=== PATIENT | female | born 1965 | race Caucasian/White ===

== ENCOUNTER 2018-09-21 12:05 | Outpatient (REF) | payer MEDICAID, SELFPAY ==
--- NOTE | 2018-09-21 12:15 | PAPFT_PTH ---
PATIENT: Fannie Killian LOC: [facility] U#:[id number] AGE/SX: 53/F ROOM: RE09/21/[address]: Angelina Mac : 1965 BED: DIS: 09/21/2018 SPEC #: [id number] RECD: 09/22/18 13:07 STATUS: SONAL REDalia #: [id number] PETER: 09/21/18 12:[address]: Angelina Mac DEPT: FA Cytology RECD BY: Ene Haskins ENTERED: 09/22/18 13:07 SP TYPE: PAPFT OTHR DR: Yoko Mcclelland Tissues: 1 - CX/ENDOCX FOR PAP SMEARS Procedures: PAP THIN PREP/UVM Screening HPV DNA PROBE Comments: [id number]
== END 2018-09-21 12:25 ==
LOC: NCHCN 12:05
PROVIDERS: PCP Nurse Practitioner Family; Visit Provider Nurse Practitioner Family
DX: Z12.4 Encounter for screening for malignant neoplasm of cervix (principal); Z11.51 Encounter for screening for human papillomavirus (HPV); Z01.419 Encounter for gynecological examination (general) (routine) without abnormal findings
CPT/HCPCS: 88142; 87624

== ENCOUNTER 2018-10-19 12:51 | Outpatient (REF) | payer MEDICAID, SELFPAY | END 2018-10-19 13:11 | LOC: NCHCN 12:51 | PROVIDERS: PCP Nurse Practitioner Family; Visit Provider Nurse Practitioner Family | DX: R35.0 Frequency of micturition (principal) | CPT/HCPCS: 87077; 87086; 87186 ==

== ENCOUNTER 2018-11-06 15:08 | Outpatient (REF) | payer MEDICAID, SELFPAY ==
--- NOTE | 2018-11-06 14:30 | ENDO_PTH ---
PATIENT: Fannie Killian LOC: [facility] U#:[id number] AGE/SX: 53/F ROOM: RE11/06/[address]: Coleman Sprague MD : 1965 BED: DIS: 11/06/2018 SPEC #: [id number] RECD: 11/06/18 18:04 STATUS: SONAL BOATENG #: [id number] PETER: 11/06/18 14:[address]: Coleman Sprague DEPT: Surgical Specimen RECD BY: Ene Haskins ENTERED: 11/06/18 18:06 SP TYPE: Endo OTHR DR: Angelina Mac Tissues: 1 - ENDOCERVICAL BX/CURRETTE 2 - CERVICAL BIOPSY 3 - CERVICAL BIOPSY Procedures: GROSS AND MICRO LEVEL 4 Comments: [id number]
== END 2018-11-06 15:28 ==
LOC: LBN 15:08
PROVIDERS: PCP Nurse Practitioner Family; Visit Provider Obstetrics & Gynecology
DX: N87.9 Dysplasia of cervix uteri, unspecified (principal); N88.9 Noninflammatory disorder of cervix uteri, unspecified; R87.810 Cervical high risk human papillomavirus (HPV) DNA test positive
CPT/HCPCS: 88305

== ENCOUNTER 2018-11-27 10:13 | Emergency (ER) | payer MEDICAID, SELFPAY ==
[2018-11-27] VITALS (48 sets, daily range): BP systolic 83–182; BP diastolic 58–144; PULSE 97–128; RESP 4–29; TEMP 36.3; O2SAT 84–96
--- NOTE | 2018-11-27 10:32 | DI.RAD_ITS ---
SYMPTOMS/DIAGNOSIS: COUGH, SHORTNESS OF BREATH CHEST X-RAY, PA AND LATERAL: Comparison is 11/23/17. The heart size and pulmonary vasculature are within normal limits. The lungs are clear. Degenerative changes are seen in the spine. IMPRESSION: No acute pulmonary process.
--- NOTE | 2018-11-27 10:38 | ED.GENADUL_ITS ---
Discharge Plan Disposition Patient Disposition: HOME Condition: Stable Discharge Details Chief Complaint: RespSymp Clinical Impression: COPD exacerbation, Pneumonia, Pulmonary nodule seen on imaging study Primary Care Provider: Angelina Mac ED Provider: Danielle Antoine [place] Meds and New Rx's Prescriptions: New cefdinir 300 mg capsule 300 mg PO BID 10 Days Qty: 19 RF: 0 doxycycline hyclate 100 mg tablet 100 mg PO BID Qty: 19 RF: 0 Continued Oxygen Tank .ROUTE .MEDSUPPLY Qty: 1 RF: 0 bisacodyl [Dulcolax (bisacodyl)] 5 mg tablet,delayed release (DR/EC) 5 mg PO ONCE Qty: 4 RF: 0 polyethylene glycol 3350 17 gram/dose powder 255 g PO ONCE Qty: 255 RF: 0 oxycodone-acetaminophen [Percocet] 10-325 mg tablet 1 tab PO .COMPLEX RF: 0 Trelegy Ellipta 100-62.5-25 mcg blister with device 1 inh IH DAILY RF: 0 cyanocobalamin (vitamin B-12) [Vitamin B-12] 1,000 MCG tablet extended release 1,000 mcg PO DAILY RF: 0 gabapentin [Neurontin] 600 MG tablet 600 mg PO BID RF: 0 ipratropium-albuterol [DuoNeb] 3 ML solution for nebulization 3 ml Inhalation Q4H PRN RF: 0 ibuprofen 800 MG tablet 800 mg PO TID RF: 0 omeprazole 40 MG capsule,delayed release(DR/EC) 40 mg PO DAILY RF: 0 amitriptyline 10 MG tablet 30 mg PO HS RF: 0 ziprasidone HCl [Geodon] 40 MG capsule 40 mg PO BID RF: 0 epinephrine [EpiPen] 0.3 MG/0.3 ML auto-injector 0.3 mg IM PRN RF: 0 topiramate [Topamax] 100 MG tablet 100 mg PO BID RF: 0 Flovent HFA 12 GM HFA aerosol inhaler 12 gm Inhalation BID RF: 0 Spiriva with HandiHaler 18 MCG capsule, w/inhalation device 18 mcg Inhalation DAILY RF: 0 cholecalciferol (vitamin D3) [Vitamin D3] 400 unit capsule 1,000 unit PO BID RF: 0 paroxetine HCl [Paxil] 20 mg tablet 20 mg PO BID RF: 0 albuterol sulfate 2.5 MG/3 ML solution for nebulization 2.5 mg UPD Q2H PRN PRNRF: 0 Discontinued levofloxacin 750 MG tablet 750 mg PO DAILY Qty: 7 RF: 0 Discharge Instructions Instructions: COPD (Chronic Obstructive Pulmonary Disease) (ED), Pneumonia (ED) Additional Instructions: Please return immediately to the emergency department if you develop any new or worsening symptoms or if you become otherwise concerned. It is extremely important that you attend your scheduled appointment with your primary care doctor on 11/29 at 11 AM as we discussed. Incidental pulmonary nodules were found on your CT scan, you will need to have repeat imaging in 6-12 months to follow these. Referrals: Angelina Mac [Primary Care Provider] - Discharge Data Discharge Date/Time-TO BE ENTERED AT DEPARTURE: 11/27/18 16:38 Medical Decision Making Fannie Killian is a 53-year-old woman with a history of multiple sclerosis, COPD, seizures presenting to the emergency department with 5 days of cough, shortness of breath, fevers despite being on prednisone and Levaquin over that time.. On exam patient is acutely nontoxic appearing, does not appear to be in respiratory distress though it has decreased breath sounds throughout and diffuse expiratory wheeze. On 2 L by nasal cannula, patient O2 sat is 93%, and she is tachycardic at 106. Concern for pneumonia versus influenza versus COPD exacerbation versus metabolic/light disturbance versus dehydration, other. Doubt ACS, PE. Exam/history is not consistent with sepsis, acute aortic pathology. Plan for EKG, chest x-ray, screening labs, IV fluid hydration, DuoNeb, telemetry. Will monitor and reassess. Patient reports feeling somewhat improved after DuoNeb. She does note that she received a DuoNeb also in her primary care care doctor's office today. Wheezes improved bilaterally, but still present. Chest x-ray negative. Plan for repeat DuoNeb, will continue IV fluid hydration. Patient reporting that she feels very well and feels ready to leave at this time, but is agreeable to DuoNeb and continuation of fluids. We will continue to monitor. Patient reports that she feels at baseline after second DuoNeb (3 total DuoNeb's today). On auscultation, no further wheeze, good breath sounds bilaterally. Patient got up to use the bathroom and was disconnected from oxygen, her O2 sats dropped into the low 80s and she became tachycardic in the 140s during short course the bathroom. She was placed back on oxygen, heart rate dropped to 110s, O2 sat rapidly improved to 90% on 2 L nasal cannula. Patient reports that she does not have travel oxygen at home, and has no oxygen whenever she leaves her house. This was the case when she went to her PCPs office this morning. Care management involved for travel O2. Patient continues to request discharge, reports that she feels well and at baseline. Concern for persistent tachycardia, significantly improved from arrival. Suspect dehydration. Awaiting second troponin, plan for second liter IV fluid. Pt with tachycardia unchanged, 110s. Pt patient reporting no further respiratory symptoms. Satting 93-94% on 2 L nasal cannula. Unclear etiology of tachycardia, likely secondary to albuterol administration, however at this time plan for CT for rule out PE. CT negative for PE, patient does have small lower lobe infiltrate and nodules that need 6-12-month follow-up per radiology. HR 100-110. Unclear etiology of tachycardia at this time, however exam/history is not consistent with sepsis, myocarditis, other acute emergent life-threatening process. Patient reports that she feels well in her usual state of health, and would like to go home at this time. As patient has been on Levaquin for 5 days at this time, plan to switch to Augmentin and azithromycin for pneumonia. Plan for her to continue her steroid course. Respiratory therapy provided patient with travel oxygen to use whenever she is outside the home. I had a lengthy discussion with the patient regarding return to emergency department precautions and importance of outpatient follow-up with her PCP tomorrow as planned. Patient verbalized understanding of the plan and was amenable. Medical Records Medical records reviewed: Yes I reviewed the patient's medical records. Imaging Data Radiologic Study: Attestation: I personally reviewed and interpreted this imaging study as follows: Radiologist's impression: Chest x-ray negative per radiology CT chest per radiology: Small infiltrate, pulmonary nodules that needs 6-12-month follow-up, no PE, no other acute findings Lab Data Lab results reviewed: Yes I reviewed the patient's lab results. 11/27/18 10:55 Nasopharynx Influenza Types A,B Antigen - Final Laboratory Tests Range/Units 11/27/18 11/27/18 11/27/18 10:30 10:30 10:30 WBC (4.4-10.8) k/cumm 8.03 RBC (4.00-5.20) m/cumm 4.82 Hgb (12.0-15.5) g/dL 14.8 Hct (36.0-46.0) % 45.8 MCV (80-95) fL 95.0 MCH (27.0-33.0) pg 30.7 MCHC (32.0-36.0) g/dL 32.3 RDW (11.7-14.6) % 15.7 H Plt Count (130-400) x1000/uL 228 MPV (8.0-11.0) fL 11.4 H Immature Gran % 0.0 Neutrophils % 64.0 Band Neutrophils % % 4.0 Lymphocytes % 19.0 Atypical Lymphs % 3 Monocytes % 10.0 Eosinophils % 0.0 Basophils % 0.0 Absolute Neutrophils (1.2-6.7) k/cumm 5.46 Absolute Lymphocytes (1.2-3.4) k/cumm 1.77 Absolute Monocytes (0.11-0.7) k/cumm 0.80 H Absolute Eosinophils (0.0-0.7) k/cumm 0.00 Absolute Basophils (0.0-0.2) k/cumm 0.00 Differential Comment Manual differential RBC Morphology See below Anisocytosis 1+ D-Dimer (<500) ng/mlFEU 279 Sodium (136-145) mmol/L 141 Potassium (3.5-5.1) mmol/L 3.7 Chloride (98-107) mmol/L 100 Carbon Dioxide (21.0-32.0) mmol/L 35.2 H Anion Gap (3-11) mmol/L 5.8 BUN (7-18) mg/dL 20 H Creatinine (0.55-1.02) mg/dL 0.70 Estimated GFR/1.73 m2 (mL/min/1.73m2) >= 60.00 Glucose (70-100) mg/dL 123 H Calcium (8.5-10.1) mg/dL 9.1 Total Bilirubin (0.2-1.0) mg/dL 0.3 AST (15-37) U/L 33 ALT (12-78) U/L 40 Alkaline Phosphatase (46-116) U/L 85 Troponin I (0.00-0.06) ng/mL < 0.02 Total Protein (6.4-8.2) g/dL 7.7 Albumin (3.4-5.0) g/dL 3.4 Range/Units 11/27/ 14:03 WBC (4.4-10.8) k/cumm RBC (4.00-5.20) m/cumm Hgb (12.0-15.5) g/dL Hct (36.0-46.0) % MCV (80-95) fL MCH (27.0-33.0) pg MCHC (32.0-36.0) g/dL RDW (11.7-14.6) % Plt Count (130-400) x1000/uL MPV (8.0-11.0) fL Immature Gran % Neutrophils % Band Neutrophils % % Lymphocytes % Atypical Lymphs % Monocytes % Eosinophils % Basophils % Absolute Neutrophils (1.2-6.7) k/cumm Absolute Lymphocytes (1.2-3.4) k/cumm Absolute Monocytes (0.11-0.7) k/cumm Absolute Eosinophils (0.0-0.7) k/cumm Absolute Basophils (0.0-0.2) k/cumm Differential Comment RBC Morphology Anisocytosis D-Dimer (<500) ng/mlFEU Sodium (136-145) mmol/L Potassium (3.5-5.1) mmol/L Chloride (98-107) mmol/L Carbon Dioxide (21.0-32.0) mmol/L Anion Gap (3-11) mmol/L BUN (7-18) mg/dL Creatinine (0.55-1.02) mg/dL Estimated GFR/1.73 m2 (mL/min/1.73m2) Glucose (70-100) mg/dL Calcium (8.5-10.1) mg/dL Total Bilirubin (0.2-1.0) mg/dL AST (15-37) U/L ALT (12-78) U/L Alkaline Phosphatase (46-116) U/L Troponin I (0.00-0.06) ng/mL < 0.02 Total Protein (6.4-8.2) g/dL Albumin (3.4-5.0) g/dL ECG Data Attestation: I personally reviewed and interpreted this ECG (s) as follows: Interpretation: EKG shows sinus tach at 106, normal axis, inferior Q waves, no STEMI, nondiagnostic EKG HPI General Mode of arrival: ambulatory . Date/Time Provider Initiated Documentation: 11/27/18 10:17 . Limitations to Documentation: no limitations . Information obtained by: patient, family, RN notes reviewed and old records reviewed . HPI Narrative: Fannie Killian is a 53-year-old woman with history of COPD, seizures, multiple sclerosis presenting to the emergency department with shortness of breath and cough. Patient was seen 5 days ago by her PCP for increased shortness of breath and cough. She was started on prednisone, Levaquin, and had a flu swab that was negative. Patient had follow-up appointment with her PCP this morning, and was sent to the emergency department for hypoxia 79% on room air and tachycardia in the 130s. Patient is on 2 L nasal cannula oxygen 24 hours a day. Patient reporting increased cough that is helped somewhat by her home COPD meds, increased shortness of breath with exertion from baseline. She reports that she does not feel short of breath at rest. She denies any pain. She reports that she has had intermittent fevers, and had a measured temp of 101 at her doctor's visit 5 days ago. No vomiting, diarrhea, rash, weakness. Patient reports decreased p.o. intake over the past few days secondary to this illness. No recent travel. Related Data Home Medications Medication Instructions Recorded Confirmed Flovent HFA 12 gm INHALATION BID 12/19/12 11/27/18 Spiriva with HandiHaler 18 mcg INHALATION DAILY 12/19/12 11/27/18 amitriptyline 30 mg PO HS 12/19/12 11/27/18 cyanocobalamin (vitamin B-12) 1,000 mcg PO DAILY 12/19/12 11/27/18 [Vitamin B-12] epinephrine [EpiPen] 0.3 mg IM PRN 12/19/12 11/27/18 gabapentin [Neurontin] 600 mg PO BID 12/19/12 11/27/18 ibuprofen 800 mg PO TID 12/19/12 11/27/18 ipratropium-albuterol [DuoNeb] 3 ml INHALATION Q4H PRN 12/19/12 11/27/18 omeprazole 40 mg PO DAILY 12/19/12 11/27/18 topiramate [Topamax] 100 mg PO BID 12/19/12 11/27/18 ziprasidone HCl [Geodon] 40 mg PO BID 12/19/12 11/27/18 albuterol sulfate 2.5 mg UPD Q2H PRN PRN vial 07/14/16 11/27/18 cholecalciferol (vitamin D3) 400 1,000 unit PO BID cap 10/30/18 11/27/18 unit capsule fluticasone 100 mcg-umeclid 62.5 1 inh IH DAILY 10/30/18 11/06/18 mcg-vilant 25 mcg powd for inhalation paroxetine 20 mg tablet 20 mg PO BID tab 10/30/18 11/27/18 Oxygen #1 each 11/03/18 11/06/18 bisacodyl 5 mg tablet,delayed 5 mg PO ONCE #4 tab 11/03/18 11/27/18 release oxycodone-acetaminophen 10 mg-325 1 tab PO .COMPLEX 11/03/18 11/27/18 mg tablet polyethylene glycol 3350 17 255 g PO ONCE #255 gm 11/03/18 11/27/18 gram/dose oral powder cefdinir 300 mg PO BID 10 Days #19 cap 11/27/18 doxycycline hyclate 100 mg PO BID #19 tab 11/27/18 Previous Rx's Medication Instructions Recorded albuterol sulfate 2.5 mg UPD Q2H PRN PRN vial 07/14/16 bisacodyl 5 mg tablet,delayed 5 mg PO ONCE #4 tab 11/03/18 release polyethylene glycol 3350 17 255 g PO ONCE #255 gm 11/03/18 gram/dose oral powder cefdinir 300 mg PO BID 10 Days #19 cap 11/27/18 doxycycline hyclate 100 mg PO BID #19 tab 11/27/18 Allergies Allergy/AdvReac Type Severity Reaction Status Date / Time varenicline [From Chantix] Allergy Unknown Verified 11/27/18 10:31 BEE STINGS Allergy Severe Uncoded 11/27/18 10:31 Review of Systems Review of Systems Constitutional: Reports fevers Eyes: denies eye pain ENT: denies facial pain, dental pain, sore throat Cardiovascular: denies chest pain, edema Respiratory: Reports SOB, cough GI: denies abdominal pain, vomiting, diarrhea : denies flank pain MSK: denies back pain, neck pain, arthralgias, myalgias Skin: denies rash Neuro: denies headaches, numbness, weakness PFSH Medical History Cigarette smoker (Chronic) History of seizures (Chronic) Chronic pain (Chronic) Multiple sclerosis (Chronic) Stage 3 severe COPD by GOLD classification (Chronic) Mood disorder (Acute) MRSA (methicillin resistant staph aureus) culture positive (Chronic) GERD (gastroesophageal reflux disease) (Chronic) Chronic cough (Chronic) Prediabetes (Chronic) Chest pain (Acute) Capsulitis of shoulder (Acute) Cellulitis and abscess of unspecified site (Acute) Cough syncope (Acute) Hypotension (Acute) Positive test for human papillomavirus (HPV) (Acute) Skin lesion (Acute) Depression (Chronic) Lumbar disc herniation (Chronic) Migraine (Chronic) Optic neuropathy (Chronic) PTSD (post-traumatic stress disorder) (Chronic) Papilloma of breast (Chronic) Urinary, incontinence, stress female (Chronic) Social History Smoking and Tabacco status: Current every day Exam Narrative Exam Narrative: Constitutional: Chronically ill but acutely [id number], pleasant, conversing normally HENT: head atraumatic/normocephalic/normal inspection, mucous membranes moist Eyes: conjunctiva normal, sclera normal, pupils 3mm b/l Neck: no stridor, normal ROM, trachea midline Chest: normal inspection Resp: Respiratory rate 20, decreased breath sounds with expiratory wheeze bilaterally Cardio: Tachycardic rate, normal rhythm, no murmur appreciated GI: abdomen soft, non-tender, non-distended Back: normal inspection, no rash Skin: warm, dry, normal color, no rash Neuro: alert, not altered, grossly non-focal, normal tone Ext: no edema, no posterior calf tenderness to palpation Psych: normal mood, normal affect, normal behavior
[2018-11-27] MEDS: Normal Saline 500 ML IV (10:40)
[2018-11-27 10:44] LABS: Abs Immature Grans 0.02 k/cumm (0.0-0.09); HCT 45.8 % (36.0-46.0); HGB 14.8 g/dL (12.0-15.5); Mean Corp. HGB Concentration 32.3 g/dL (32.0-36.0); Mean Corpuscular Hemoglobin 30.7 pg (27.0-33.0); Mean Platelet Volume 11.4 fL (8.0-11.0); Platelet Count 228 x1000/uL (130-400); RBC 4.82 m/cumm (4.00-5.20); RBC Distribution Width 15.7 % (11.7-14.6); White Blood Cell Count 8.03 k/cumm (4.4-10.8)
[2018-11-27] MEDS: Albuterol/Ipratropium 3 ML UPD VIAL UPD ×2 (10:54→12:45)
[2018-11-27 11:06] LABS: ALT 40 U/L (12-78); AST 33 U/L (15-37); Albumin 3.4 g/dL (3.4-5.0); Alkaline Phosphatase 85 U/L (46-116); Anion Gap 5.8 mmol/L (3-11); BUN 20 mg/dL (7-18); Bilirubin, Total 0.3 mg/dL (0.2-1.0); CO2 35.2 mmol/L (21.0-32.0); Calcium 9.1 mg/dL (8.5-10.1); Chloride 100 mmol/L (98-107); Glucose 123 mg/dL (70-100); Potassium 3.7 mmol/L (3.5-5.1); Sodium 141 mmol/L (136-145); Total Protein 7.7 g/dL (6.4-8.2)
[2018-11-27 11:08] LABS: Troponin I < 0.02 ng/mL (0.00-0.06)
[2018-11-27 11:14] LABS: D-Dimer 279 ng/mlFEU (<500)
[2018-11-27 11:32] LABS: Absolute Lymphocyte Count 1.77 k/cumm (1.2-3.4); Absolute Neutrophil Count 5.46 k/cumm (1.2-6.7); Anisocytosis 1+; Atypical Lymphocytes % 3; Diff Comment Manual Differential
--- NOTE | 2018-11-27 14:34 | PDOC.ERCMPRO ---
Care Management Progress Note 11/27-Dr. Bernard Antoine requested assistance with portable oxygen as well as a PCP f/u appt for Tuesday afternoon/Tuesday morning. Fannie receives oxygen from [employer]. Called [facility] and spoke with Coleman. Coleman will bring a [employer]able [employer] tank to the emergency department for Fannie to take home. This CM called [employer] and spoke with Luis Miguel. Luis Miguel stated today was a holiday so he could bring portable oxygen tomorrow to Fannie's house. Called [facility] and spoke with Porsche. Porsche scheduled f/u appt for Tuesday, 12/27 at 11 am with Angelina Mac at [facility]. Dr. Aura Antoine is aware of the above. Patient given an appt card.
--- NOTE | 2018-11-27 14:38 | CMPROGNOTE_ITS ---
Care Management Progress Note 11/27-Dr. Bernard Antoine requested assistance with portable oxygen as well as a PCP f/u appt for Tuesday afternoon/Tuesday morning. Fannie receives oxygen from [facility]. Called [facility] and spoke with Coleman. Coleman will bring a Portable [email or web address] [facility] tank to the emergency department for Fannie to take home. This CM called [email or web address] [facility] and spoke with Luis Miguel. Luis Miguel stated today was a holiday so he could bring portable oxygen tomorrow to Fannie's house. Called [facility] and spoke with Porsche. Porsche scheduled f/u appt for Tuesday, 12/27 at 11 am with Angelina Mac at [facility]. Dr. Aura Antoine is aware of the above. Patient given an appt card.
[2018-11-27] MEDS: Normal Saline 1,000 ML 1000 ML IV (14:45)
[2018-11-27 14:46] LABS: Troponin I < 0.02 ng/mL (0.00-0.06)
--- NOTE | 2018-11-27 15:08 | DI.CT_ITS ---
SYMPTOM/DIAGNOSIS: TACHYCARDIA, SOB PE CHEST CT: CT angiography was performed with multi slice acquisition and multi planar and 3D reconstruction. PE CT was performed according to protocol. There is no evidence of a pulmonary embolus. The thoracic aorta is of normal caliber. No aneurysmal dilatation is seen. Heart size is within normal limits. No significant pericardial effusion is present. No thoracic adenopathy is identified. There is no pleural effusion or pneumothorax. There are a few peripheral pulmonary nodules seen in the right lung. There are emphysematous changes seen in the lung apices. There does appear to be a faint infiltrate in the right lower lobe. Tracheobronchial tree is unremarkable. The bones are intact. Degenerative changes are seen in the spine. IMPRESSION: 1. No evidence of a pulmonary embolus, thoracic aortic dissection or aneurysm. 2. Question of a faint infiltrate in the right lower lobe. This may represent atelectasis or pneumonia. 3. A few non calcified peripheral nodules in the right lung. These are nonspecific. The findings were discussed with the ER on the date of the examination.
[2018-11-27] MEDS: Omnipaque 350 MG/ML 100 ML BTL IJ (15:51)
[2018-11-27] MEDS: Doxycycline Hyclate 100 MG CAP PO (16:10)
[2018-11-27] MEDS: Cefdinir 300 MG CAP PO (16:20)
== END 2018-11-27 16:38 | disposition home or self-care (01) ==
PROVIDERS: Emergency Provider Student in an Organized Health Care Education/Training Program; PCP Nurse Practitioner Family
DX: J44.0 Chronic obstructive pulmonary disease with (acute) lower respiratory infection (principal); J18.9 Pneumonia, unspecified organism; R91.1 Solitary pulmonary nodule; R00.0 Tachycardia, unspecified; F17.210 Nicotine dependence, cigarettes, uncomplicated
CPT/HCPCS: 36415; 71275; 80053; 87449; 93005; 94640; 96360; 96361; 99285; 71046; 84484; 85025; 85379; 93010; J3490; J7620

== ENCOUNTER 2019-02-01 16:25 | Outpatient (REF) | payer MEDICAID, SELFPAY | END 2019-02-01 16:45 | LOC: NCHCN 16:25 | PROVIDERS: PCP Nurse Practitioner Family; Visit Provider Nurse Practitioner Family | DX: R30.0 Dysuria (principal) | CPT/HCPCS: 87086 ==

== ENCOUNTER 2019-03-29 10:31 | Outpatient (REF) | payer MEDICAID, SELFPAY ==
[2019-04-04 00:54] LABS: Codeine Negative ng/mL (Cutoff: 25); Dihydrocodeine Negative ng/mL (Cutoff: 25); Hydrocodone Negative ng/mL (Cutoff: 25); Hydromorphone Negative ng/mL (Cutoff: 25); Morphine Negative ng/mL (Cutoff: 25); Naloxone Negative ng/mL (Cutoff: 25); Norhydrocodone Negative ng/mL (Cutoff: 25); Noroxycodone Negative ng/mL (Cutoff: 25); Noroxymorphone Negative ng/mL (Cutoff: 25); Opiates Interpretation Negative.
== END 2019-03-29 10:51 ==
LOC: NCHCN 10:31
PROVIDERS: PCP Nurse Practitioner Family; Visit Provider Nurse Practitioner Family
DX: F11.20 Opioid dependence, uncomplicated (principal); G89.29 Other chronic pain
CPT/HCPCS: 80361

== ENCOUNTER 2019-04-25 11:05 | Outpatient (REF) | payer MEDICAID, SELFPAY ==
[2019-04-25 20:00] LABS: Abs Immature Grans 0.01 k/cumm (0.0-0.09); Absolute Basophil Count 0.03 k/cumm (0.0-0.2); Absolute Eosinophil Count 0.09 k/cumm (0.0-0.7); Absolute Lymphocyte Count 2.39 k/cumm (1.2-3.4); Absolute Monocyte Count 0.47 k/cumm (0.11-0.7); Absolute Neutrophil Count 4.35 k/cumm (1.2-6.7); Basophils % 0.4; Eosinophils % 1.2; HCT 47.2 % (36.0-46.0); HGB 14.3 g/dL (12.0-15.5); Immature Grans % 0.1; Lymphocytes % 32.6; Mean Corp. HGB Concentration 30.3 g/dL (32.0-36.0); Mean Corpuscular Hemoglobin 29.7 pg (27.0-33.0); Mean Corpuscular Volume 98.1 fL (80-95); Mean Platelet Volume 12.2 fL (8.0-11.0); Monocytes % 6.4; Neutrophils % 59.3; Platelet Count 247 x1000/uL (130-400); RBC 4.81 m/cumm (4.00-5.20); RBC Distribution Width 14.9 % (11.7-14.6); White Blood Cell Count 7.34 k/cumm (4.4-10.8)
[2019-04-25 20:15] LABS: Anion Gap 8.5 mmol/L (3-11); BUN 12 mg/dL (7-18); CO2 28.5 mmol/L (21.0-32.0); CREATININE 0.68 mg/dL (0.55-1.02); Calcium 8.9 mg/dL (8.5-10.1); Chloride 105 mmol/L (98-107); Glucose 124 mg/dL (70-100); Potassium 4.1 mmol/L (3.5-5.1); Sodium 142 mmol/L (136-145)
[2019-04-27 10:34] LABS: Hepatitis C Ab w Rflx HCV PCR Negative (NEGAT)
== END 2019-04-25 11:25 ==
LOC: NCHCN 11:05
PROVIDERS: PCP Nurse Practitioner Family; Visit Provider Nurse Practitioner Family
DX: G47.00 Insomnia, unspecified (principal); F32.9 Major depressive disorder, single episode, unspecified; J44.9 Chronic obstructive pulmonary disease, unspecified; M51.16 Intervertebral disc disorders with radiculopathy, lumbar region; G89.29 Other chronic pain; Z13.9 Encounter for screening, unspecified
CPT/HCPCS: 80048; 86803; 85025

== ENCOUNTER 2019-06-18 08:25 | Outpatient (REF) | payer MEDICAID, SELFPAY ==
[2019-06-18 21:21] LABS: Calculated LDL 126 mg/dL; Cholesterol 244 mg/dL (50-200); Glucose 93 mg/dL (70-100); HDL Cholesterol 45 mg/dL (40-60); Triglyceride 368 mg/dL (30-150)
== END 2019-06-18 08:45 ==
LOC: NCHCN 08:25
PROVIDERS: PCP Nurse Practitioner Family; Visit Provider Nurse Practitioner Family
DX: R73.03 Prediabetes (principal)
CPT/HCPCS: 80061; 82947

== ENCOUNTER 2019-07-04 01:07 | Outpatient (CLI) | payer MEDICAID, SELFPAY ==
--- NOTE | 2019-07-04 11:52 | DI.CT_ITS ---
EXAM: CT CHEST WO CLINICAL HISTORY: F/U LUNG NODULE R93.89. TECHNIQUE: CT was performed according to the usual protocol. COMPARISON: CHEST 2 VIEWS PA,LAT from 11/23/2017 CT chest PE CTA from 11/27/2018 FINDINGS: Compared with a previous examination, there has been no change in the status of the small pleural-bas ed nodules in the right lung. No new nodules are evident. The lungs are well expanded. There is no pleural effusion. The heart is not enlarged. There is no pericardial effusion. There is no evidence f or mediastinal adenopathy. IMPRESSION: No interval change is demonstrated.
== END 2019-07-04 01:27 ==
PROVIDERS: PCP Nurse Practitioner Family; Visit Provider Internal Medicine
DX: R91.8 Other nonspecific abnormal finding of lung field (principal)
CPT/HCPCS: 71250

== ENCOUNTER 2019-11-29 09:32 | Emergency (ER) | payer MEDICAID, SELFPAY ==
[2019-11-29] VITALS (20 sets, daily range): BP systolic 105–137; BP diastolic 61–92; PULSE 85–116; RESP 13–31; TEMP 36.6–36.7; O2SAT 92–100
--- NOTE | 2019-11-29 09:30 | DI.RAD_ITS ---
EXAM: XR PORTABLE CHEST AP CLINICAL HISTORY: cough. TECHNIQUE: 2D digital imaging was performed. COMPARISON: CT CHEST WO from 07/04/2019 FINDINGS: LUNGS: Clear. No pleural abnormality seen. HEART: Normal. MEDIASTINUM: Normal. OTHER FINDINGS: None. IMPRESSION: No acute pulmonary findings. DATA REPOSITORY: RADIATION DOSE DELIVERED:
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
[2019-11-29 09:53] LABS: Abs Immature Grans 0.03 k/cumm (0.0-0.09); Absolute Basophil Count 0.02 k/cumm (0.0-0.2); Absolute Lymphocyte Count 1.72 k/cumm (1.2-3.4); Absolute Monocyte Count 0.46 k/cumm (0.11-0.7); Absolute Neutrophil Count 6.48 k/cumm (1.2-6.7); Basophils % 0.2; Eosinophils % 1.1; HCT 45.5 % (36.0-46.0); Immature Grans % 0.3 %; Lymphocytes % 19.5; Mean Corp. HGB Concentration 30.8 g/dL (32.0-36.0); Mean Corpuscular Hemoglobin 30.3 pg (27.0-33.0); Mean Corpuscular Volume 98.5 fL (80-95); Mean Platelet Volume 11.6 fL (8.0-11.0); Monocytes % 5.2; Neutrophils % 73.7; Platelet Count 265 x1000/uL (130-400); RBC 4.62 m/cumm (4.00-5.20); RBC Distribution Width 14.8 % (11.7-14.6); White Blood Cell Count 8.81 k/cumm (4.4-10.8)
[2019-11-29 09:55] LABS: BE (Venous) 5.8 mmol/L (-3-3); HCO3 (Venous) 30 mmol/L (22-28); O2 Sat (Venous) 96 % (70-80); TCO2 (Venous) 27 mmol/L (22-29); pCO2 (Venous) 48 mm/Hg (34-47); pH (Venous) 7.41 (7.35-7.45); pO2 (Venous) 76 mm/Hg (28-44)
[2019-11-29] MEDS: Albuterol/Ipratropium 3 ML UPD VIAL UPD (09:57)
[2019-11-29] MEDS: methylPREDNISolone SUCC 125 MG VIAL IVP (09:58)
[2019-11-29 10:19] LABS: Bilirubin Negative (Negative); Blood Negative (Negative); Clarity Sl Cloudy (Clear); Glucose Negative (Negative); Ketones Negative (Negative); Leukocyte Esterase Negative (Negative); Nitrite Negative (Negative); Specific Gravity 1.015 (1.005-1.025); Urobilinogen 0.2 EU/dL (Up TO 0.2); pH 8.5 (5-8)
[2019-11-29 10:55] LABS: ALT 28 U/L (14-59); AST 52 U/L (15-37); Albumin 3.4 g/dL (3.4-5.0); Alkaline Phosphatase 87 U/L (46-116); Anion Gap 9.7 mmol/L (3-11); BUN 14 mg/dL (7-18); Bilirubin, Total 0.4 mg/dL (0.2-1.0); CO2 30.3 mmol/L (21.0-32.0); CREATININE 0.52 mg/dL (0.55-1.02); Chloride 104 mmol/L (98-107); Glucose 134 mg/dL (74-106); Potassium 3.8 mmol/L (3.5-5.1); Sodium 144 mmol/L (136-145); Total Protein 6.7 g/dL (6.4-8.2); Troponin I < 0.05 ng/Ml (<0.06)
--- NOTE | 2019-11-29 11:31 | NUR.NOTE ---
ref to [facility]. Nursing Note:
== END 2019-11-29 11:23 | disposition home or self-care (01) ==
PROVIDERS: Emergency Provider Emergency Medicine; PCP Nurse Practitioner Family
DX: J44.1 Chronic obstructive pulmonary disease with (acute) exacerbation (principal)
CPT/HCPCS: 80053; 82805; 87449; 93005; 94640; 96374; 99284; 71045; 81003; 83735; 84484; 85025; 93010; J2930; J7620

== ENCOUNTER 2020-03-25 15:02 | Outpatient (REF) | payer MEDICAID, SELFPAY ==
[2020-03-25 20:12] LABS: Hemoglobin A1C 6.3 % (3.8-5.6)
== END 2020-03-25 15:22 ==
LOC: NCHCN 15:02
PROVIDERS: PCP Nurse Practitioner Family; Visit Provider Nurse Practitioner Family
DX: R73.03 Prediabetes (principal)
CPT/HCPCS: 83036

== ENCOUNTER 2020-04-25 13:16 | Emergency (ER) | payer MEDICAID, SELFPAY ==
[2020-04-25 13:14] VITALS: BP 143/74; PULSE 72; RESP 18; TEMP 36.3; O2SAT 92
[2020-04-25] MEDS: Normal Saline 1,000 ML 1000 ML IV (13:53)
[2020-04-25 14:05] LABS: Abs Immature Grans 0.02 k/cumm (0.0-0.09); Absolute Basophil Count 0.03 k/cumm (0.0-0.2); Absolute Eosinophil Count 0.03 k/cumm (0.0-0.7); Absolute Lymphocyte Count 2.16 k/cumm (1.2-3.4); Absolute Monocyte Count 0.68 k/cumm (0.11-0.7); Absolute Neutrophil Count 6.98 k/cumm (1.2-6.7); Basophils % 0.3; Eosinophils % 0.3; HCT 47.7 % (36.0-46.0); HGB 14.5 g/dL (12.0-15.5); Immature Grans % 0.2 %; Lymphocytes % 21.8; Mean Corp. HGB Concentration 30.4 g/dL (32.0-36.0); Mean Corpuscular Hemoglobin 29.3 pg (27.0-33.0); Mean Corpuscular Volume 96.4 fL (80-95); Mean Platelet Volume 12.5 fL (8.0-11.0); Monocytes % 6.9; Neutrophils % 70.5; Platelet Count 269 x1000/uL (130-400); RBC 4.95 m/cumm (4.00-5.20); RBC Distribution Width 14.1 % (11.7-14.6)
[2020-04-25 14:12] LABS: Bilirubin Negative (Negative); Blood Trace-intact (Negative); Clarity Clear (Clear); Glucose Negative (Negative); Ketones Negative (Negative); Leukocyte Esterase Negative (Negative); Nitrite Negative (Negative); Urobilinogen 0.2 EU/dL (Up TO 0.2); pH 7.5 (5-8)
[2020-04-25 14:27] LABS: ALT 19 U/L (14-59); AST 16 U/L (15-37); Albumin 3.6 g/dL (3.4-5.0); Alkaline Phosphatase 88 U/L (46-116); Anion Gap 8.8 mmol/L (3-11); BUN 17 mg/dL (7-18); Bilirubin, Total 0.4 mg/dL (0.2-1.0); CO2 30.2 mmol/L (21.0-32.0); CREATININE 0.58 mg/dL (0.55-1.02); Calcium 9.2 mg/dL (8.5-10.1); Chloride 100 mmol/L (98-107); Glucose 123 mg/dL (74-106); Lipase 84 U/L (73-393); Potassium 3.5 mmol/L (3.5-5.1); Sodium 139 mmol/L (136-145); Total Protein 7.7 g/dL (6.4-8.2)
[2020-04-25 14:30] LABS: Epithelial Cells Few HPF (Negative); RBC 0-2 HPF (0-2); WBC 0-2 HPF (0-5)
--- NOTE | 2020-04-25 14:30 | DI.CT_ITS ---
EXAM: CT ABDOMEN PELVIS W INDICATION: Left lower quadrant pain. COMPARISON: CT CT chest PE CTA from 11/27/2018 TECHNIQUE: FINDINGS: CT examination of the abdomen and pelvis was performed with a bolus infusion of 100 cc of Omnipaque 3 50. Images obtained through the lung bases are unremarkable. Liver, spleen and pancreas appear normal . Gallbladder and bile ducts are CT normal. Adrenals are unremarkable in appearance. The kidneys are normal in size and shape with no hydronephr osis. There are multiple small nonobstructing left renal calculi.. Urinary bladder essentially empt y. Abdominal aorta is of normal diameter and no major vascular abnormality is seen. No abdominal wall hernia. No abdominal or pelvic adenopathy. [employer] structures appear intact. Appendix is normal. No evidence of diverticulitis or bowel obstruction. IMPRESSION: Nonobstructing left renal calculi. Examination is otherwise unremarkable. RADIATION DOSE DELIVERED: Total DLP Total DLP
[2020-04-25 14:31] LABS: Bacteria Few HPF (Negative); C & S Indicated? No; Casts Negative LPF (Negative); Crystals Moderate Amorphous HPF (Negative); Mucus Trace (Negative)
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
[2020-04-25] MEDS: Omnipaque 350 MG/ML 100 ML BTL IJ (16:03)
--- NOTE | 2020-04-25 16:57 | NUR.NOTE ---
Nursing Note: referal sent to urology 04/25/20
[2020-04-25 17:18] VITALS: BP 132/81; PULSE 71; RESP 20; O2SAT 94
== END 2020-04-25 17:10 | disposition home or self-care (01) ==
PROVIDERS: Physician Assistant; Emergency Provider Physician Assistant; PCP Nurse Practitioner Family
DX: N20.0 Calculus of kidney (principal); R11.0 Nausea; J44.9 Chronic obstructive pulmonary disease, unspecified; F17.210 Nicotine dependence, cigarettes, uncomplicated; G35 Multiple sclerosis
CPT/HCPCS: 36415; 80053; 83690; 96360; 96361; 99285; 74177; 81003; 81015; 85025; 99284; J3490

== ENCOUNTER 2020-05-15 13:04 | Emergency (ER) | payer MEDICAID, SELFPAY ==
[2020-05-15] VITALS (25 sets, daily range): BP systolic 110–140; BP diastolic 65–75; PULSE 88–137; RESP 14–29; TEMP 36.6; O2SAT 89–96
--- NOTE | 2020-05-15 13:00 | RT.EKG_ITS ---
APPROVED REPORT Exam: Resting ECG Patient Location: E HR:122 bpm ECG Measurements Heart Rate 122 AXIS ME 154 P 88 QRSd 89 QRS 85 QT 333 T 73 QTc 475 Conclusion Sinus tachycardia, rate 120, narrow qrs, no st segent elev
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
[2020-05-15] MEDS: methylPREDNISolone SUCC 125 MG VIAL IVP (13:27)
[2020-05-15] MEDS: Normal Saline 1,000 ML 150 ML IV (13:32)
[2020-05-15] MEDS: FAMOTIDINE 20 MG/50 ML BAG 200 MG IVPB (13:33)
[2020-05-15] MEDS: Inhaler, Assist Device 1 EACH MC (13:34)
[2020-05-15] MEDS: Normal Saline Flush 10 ML SYR IVP (13:35)
[2020-05-15] MEDS: diphenhydrAMINE 50 MG/ML VIAL IVP (13:35)
== END 2020-05-15 15:35 | disposition home or self-care (01) ==
LOC: ER 14:50
PROVIDERS: Emergency Provider Emergency Medicine; PCP Nurse Practitioner Family
DX: T63.441A Toxic effect of venom of bees, accidental (unintentional), initial encounter (principal); L29.9 Pruritus, unspecified; R06.02 Shortness of breath; Z91.030 Bee allergy status; J44.9 Chronic obstructive pulmonary disease, unspecified; Z99.81 Dependence on supplemental oxygen; G35 Multiple sclerosis
CPT/HCPCS: 93005; 96361; 96374; 96375; 99284; 93010; J1200; J2930

== ENCOUNTER 2020-05-20 00:54 | Outpatient (CLI) | payer MEDICAID, SELFPAY ==
--- NOTE | 2020-05-20 09:45 | DI.MRI_ITS ---
EXAM: MR CERVICAL SPINE WO CLINICAL HISTORY: MULTIPLE SCLEROSIS, G35 TECHNIQUE: Multiplanar multisequence MRI of the cervical spine was performed without intravenous con trast. COMPARISON: No exams were available for comparison FINDINGS: Patient motion artifact. BONES: Vertebral body heights are maintained. Intervertebral disc spaces are normal. Alignment is nor mal. Bone marrow signal intensity is within normal limits. CERVICAL CORD: Craniovertebral junction is unremarkable. The cervical cord is normal size and signal intensity. SOFT TISSUES: Unremarkable. C2-3: No disc herniation or bulge is identified. No significant central spinal canal or neural forami nal stenosis. C3-4: No disc herniation or bulge is identified. No significant central spinal canal or neural forami nal stenosis C4-5: No disc herniation or bulge is identified. No significant central spinal canal or neural forami nal stenosis C5-6: Small central disc herniation. No significant central spinal canal or neural foraminal stenosi s C6-7: No disc herniation or bulge is identified. No significant central spinal canal or neural forami nal stenosis C7-T1: No disc herniation or bulge is identified. No significant central spinal canal or neural cindy inal stenosis IMPRESSION: 1. No spinal cord lesions identified. 2. Small central disc herniation at C5-C6. No significant central spinal canal or neural foraminal s tenosis. DATA REPOSITORY:
--- NOTE | 2020-05-20 10:20 | DI.MRI_ITS ---
EXAM: MR BRAIN WO CLINICAL HISTORY: MULTIPLE SCLEROSIS G35,DEMYELINATING DISEASE,G37.9 TECHNIQUE: Multiplanar multisequence MRI of the brain was performed. COMPARISON: MR MRI - BRAIN W/WO CONTRAST from 07/06/2016 FINDINGS: VENTRICLES AND EXTRA AXIAL SPACES: Normal in size and morphology for the patient's age. MIDLINE SHIFT: None. CEREBRAL PARENCHYMA: No focus of restricted diffusion to suggest acute infarct. No space-occupying le jacqueline identified. There are again seen multiple areas of hyperintense signal in the white matter consi stent with the patient's known demyelinating process. Several of the lesions appear more conspicuous on the current examination. Has been interval increase in size of a lesion in the left frontal lobe adjacent to the anterior horn of the lateral ventricle. (Series 8001, image 16). There is also bee n increase in size of a lesion adjacent to the right lateral ventricle posteriorly (series 8001, imag e 17). There is a new tiny lesion on the same image anterior to the previously described image on th e right. HEMORRHAGE: None. BRAINSTEM/CEREBELLUM: Normal. CALVARIUM: Normal. VISUALIZED PARANASAL SINUSES/MASTOIDS:Small mucous retention cyst or polyp in the right sphenoid sinu s. Small fluid level in the left sphenoid sinus. The remaining sinuses are clear. [place]: Normal flow void. [place]: Unremarkable. OTHER FINDINGS: None. IMPRESSION: Multiple white matter lesions as described above consistent with the patient's history of multiple sc lerosis. Interval increase in size of a few of the lesions with a new tiny lesion on the right. Ple ase see the above discussion for complete details. DATA REPOSITORY:
== END 2020-05-20 01:14 ==
PROVIDERS: PCP Nurse Practitioner Family; Visit Provider Psychiatry & Neurology Neurology
DX: G37.9 Demyelinating disease of central nervous system, unspecified (principal); G35 Multiple sclerosis
CPT/HCPCS: 70551; 72141

== ENCOUNTER 2020-06-03 15:22 | Outpatient (REF) | payer MEDICAID, SELFPAY ==
--- NOTE | 2020-06-03 15:00 | PAPFT_PTH ---
PATIENT: Fannie Killian LOC: [facility] U#:[id number] AGE/SX: 54/F ROOM: RE06/03/[address]: Angelina Mac : 1965 BED: DIS: 06/03/2020 SPEC #: [id number] RECD: 06/04/20 13:12 STATUS: SONAL REQ #: [id number] PETER: 06/03/20 15:[address]: Angelina Mac DEPT: [facility] Cytology RECD BY: Bernadette Renee Tissues: 1 - CX/ENDOCX FOR PAP SMEARS Procedures: PAP THIN PREP/UVM Screening HPV DNA PROBE Comments: [id number]
== END 2020-06-03 15:42 ==
LOC: NCHCN 15:22
PROVIDERS: PCP Nurse Practitioner Family; Visit Provider Nurse Practitioner Family
DX: R87.810 Cervical high risk human papillomavirus (HPV) DNA test positive (principal)
CPT/HCPCS: 88142; 87624

== ENCOUNTER 2020-06-11 13:25 | Outpatient (REF) | payer MEDICAID, SELFPAY ==
[2020-06-12 02:09] LABS: Abs Immature Grans 0.01 10^3/uL (0.0-0.06); Absolute Basophil Count 0.02 10^3/uL (0.0-0.2); Absolute Eosinophil Count 0.03 10^3/uL (0.0-0.7); Absolute Lymphocyte Count 1.24 10^3/uL (1.2-3.4); Absolute Monocyte Count 0.42 10^3/uL (0.1-0.8); Absolute Neutrophil Count 3.44 10^3/uL (1.2-6.7); Basophils % 0.4; Eosinophils % 0.6; HCT 44.7 % (36.0-46.0); HGB 13.7 g/dL (11.2-15.7); Immature Grans % 0.2; MCH 29.3 pg (27.0-33.0); MCHC 30.6 % (32.0-36.0); MCV 95.5 fL (80-95); MPV 12.5 fL (8.0-11.0); Monocytes % 8.1; Neutrophils % 66.7; Nucleated RBC 0 %; Platelet Count 230 10^3/uL (130-400); RBC 4.68 10^6/uL (3.93-5.22); RDW 14.1 % (11.7-14.6); RDW-SD 50.1 fL; WBC 5.16 10^3/uL (4.4-10.8)
[2020-06-12 02:27] LABS: ALT 29 U/L (14-59); AST 21 U/L (15-37); Alkaline Phosphatase 79 U/L (46-116); Anion Gap 4.5 mmol/L (3-11); BUN 19 mg/dL (7-18); Bilirubin, Total 0.5 mg/dL (0.2-1.0); CO2 35.5 mmol/L (21.0-32.0); CREATININE 0.65 mg/dL (0.55-1.02); Calcium 9.4 mg/dL (8.5-10.1); Chloride 102 mmol/L (98-107); Glucose 126 mg/dL (74-106); Sodium 142 mmol/L (136-145); TSH 0.77 uIU/mL (0.36-3.74); Total Protein 6.6 g/dL (6.4-8.2)
== END 2020-06-11 13:45 ==
LOC: NCHCN 13:25
PROVIDERS: PCP Nurse Practitioner Family; Visit Provider Nurse Practitioner Family
DX: N39.0 Urinary tract infection, site not specified (principal); R10.9 Unspecified abdominal pain
CPT/HCPCS: 80053; 84443; 85025; 87086

== ENCOUNTER 2020-06-19 01:02 | Outpatient (CLI) | payer MEDICAID, SELFPAY ==
--- NOTE | 2020-06-19 08:27 | DI.MAMMO_ITS ---
EXAM: MAMMO SCREENING CLINICAL HISTORY: SCREENING,[facility],Z00.00 TECHNIQUE: Mammograms were interpreted according to the usual protocol including computer analysis w [employer] CAD system, tomosynthesis and C-view imaging. COMPARISON: 2012 and 2016 FINDINGS: The breasts are composed of scattered fibroglandular densities, Breast Density category B. No suspicious masses or suspicious microcalcifications are seen. No skin thickening or abnormal axillary lymph nodes are seen. There has been no significant change from prior exams. There is motion on both left cc and MLO views. The patient should return for repeat imaging at no ad ditional charge. IMPRESSION: BI-RADS Category 0 - Assessment Incomplete: Need additional imaging evaluation Breast Density - Category B, scattered fibroglandular densities. A negative radiographic report should not delay biopsy if a dominant or clinically suspicious mass is present. Up to ten percent of cancers are not identified on mammography. A negative report may reinforce clinical impression. Adenosis and dense breasts may obscure an underlying neoplasm. False positive reports average 6 to 10%. Patient will receive a letter notifying them of these results.
== END 2020-06-19 01:22 ==
PROVIDERS: PCP Nurse Practitioner Family; Visit Provider Nurse Practitioner Family
DX: Z12.31 Encounter for screening mammogram for malignant neoplasm of breast (principal); R92.2 Inconclusive mammogram
CPT/HCPCS: 77063; 77067

== ENCOUNTER 2020-06-26 00:50 | Outpatient (CLI) | payer MEDICAID, SELFPAY ==
--- NOTE | 2020-06-26 | DI.CT_ITS ---
EXAM: CT CHEST WO CLINICAL HISTORY: F/U LUNG NODULES, F/U ABNL DIAGNOSTIC IMAGING,R93.89 TECHNIQUE: COMPARISON: CT CT CHEST WO from 07/04/2019 FINDINGS: CT examination of the chest was contrast administration. Images obtained through the upper show unre markable appearance of visualized portions of the liver, spleen, and pancreas. Note is made of nonob structing left renal calculi. No cardiac. Thoracic aorta is of diameter. Multiple small superior mediastinal lymph nodes noted, i ncreased in number since prior study June 2019. There are severe pulmonary emphysematous changes, predominantly central lobular. Multiple small pleu ral-based nodules are seen, unchanged from prior study of June 2019. There are multiple new pulmonary nodules, the largest a spiculated 12 millimeters nodule of the left upper lobe, the next largest 8 millimeter in diameter right lower lobe nodule. 5 millimeter left low er lobe nodule also noted. These nodules are all noncalcified. The findings as described are suspic ious for malignancy, primary versus metastatic. Tissue sampling of left upper lobe irregular nodule should be considered for further evaluation. Please correlate clinically with any known remote malig myra. IMPRESSION: Multiple new pulmonary nodules since prior examination of June 2019. Findings suspicious for ma lignancy, primary and/or metastatic. Biopsy or close follow-up recommended. RADIATION DOSE DELIVERED: 829.87mGy.cm Total DLP
== END 2020-06-26 01:10 ==
PROVIDERS: PCP Nurse Practitioner Family; Visit Provider Internal Medicine
DX: R91.8 Other nonspecific abnormal finding of lung field (principal)
CPT/HCPCS: 71250

== ENCOUNTER 2020-06-26 01:04 | Outpatient (CLI) | payer MEDICAID, SELFPAY ==
--- NOTE | 2020-06-26 | DI.MAMMO_ITS ---
EXAM: MG MAMMO SCREEN CALL BACK UNI CLINICAL HISTORY: F/U MAMMO, MOTION LT CC AND MLO VIEW TECHNIQUE: Mammograms were interpreted according to the usual protocol including computer analysis w [facility] CAD system, tomosynthesis and C-view imaging. COMPARISON: FINDINGS: Mammographic images from June 19 contain some motion artifact, repeat images were obtained tod ay along with spot compression views of the left breast. No mass or clumped microcalcification ident ified in either breast. Comparison with prior studies including 2017 show no gross interval change. IMPRESSION: No specific evidence of malignancy at this time. Routine screening examinations are suggested at yea rly intervals in this age group according to the ACS ACR guidelines. BI-RADS Category 1 - Negative Breast Density - Category B - Scattered areas of fibroglandular density
== END 2020-06-26 01:24 ==
PROVIDERS: PCP Nurse Practitioner Family; Visit Provider Nurse Practitioner Family
DX: R92.8 Other abnormal and inconclusive findings on diagnostic imaging of breast (principal); R92.2 Inconclusive mammogram; Z12.39 Encounter for other screening for malignant neoplasm of breast
CPT/HCPCS: 77063; 77067

== ENCOUNTER 2020-07-01 11:43 | Outpatient (REF) | payer MEDICAID, SELFPAY ==
[2020-07-04 06:48] LABS: Patient Race White; SARS-CoV-2 RNA Undetected (Undetected); SARS-CoV-2 Specimen Source Nasal
== END 2020-07-01 12:03 ==
LOC: NCHCN 11:43
PROVIDERS: PCP Nurse Practitioner Family; Visit Provider Nurse Practitioner Family
DX: Z11.59 Encounter for screening for other viral diseases (principal)
CPT/HCPCS: U0003

== ENCOUNTER 2020-07-09 09:47 | Emergency (ER) | payer MEDICAID, SELFPAY ==
[2020-07-09] VITALS (7 sets, daily range): BP systolic 135–155; BP diastolic 83–113; PULSE 74–94; RESP 4–24; TEMP 36–36.2; O2SAT 96–97
--- NOTE | 2020-07-09 09:45 | RT.EKG_ITS ---
APPROVED REPORT Exam: Resting ECG Patient Location: E HR:91 bpm ECG Measurements Heart Rate 91 AXIS NM 149 P 86 QRSd 100 QRS 76 QT 385 T 69 QTc 475 Conclusion Sinus rhythm...normal P axis, V-rate 60- 99 Ventricular bigeminy...bigeminy string>4 w/ V complexes Right atrial enlargement...P>0.25mV 2 lds or<-0.24mV aVR/aVL Probable anterolateral infarct, old...Q>35mS, abnrm ST-T, V2-V6,I,aVL. Ventricular bigeminy. No STEMI. I have reviewed and interpreted ECG and agree with software generated interpretation.
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
[2020-07-09 10:15] LABS: Abs Immature Grans 0.02 10^3/uL (0.0-0.06); Absolute Eosinophil Count 0.02 10^3/uL (0.0-0.7); Absolute Lymphocyte Count 2.43 10^3/uL (1.2-3.4); Absolute Monocyte Count 0.83 10^3/uL (0.1-0.8); Absolute Neutrophil Count 8.93 10^3/uL (1.2-6.7); Basophils % 0.2; Eosinophils % 0.2; HCT 48.5 % (36.0-46.0); HGB 15.2 g/dL (11.2-15.7); Immature Grans % 0.2; Lymphocytes % 19.8; MCH 29.4 pg (27.0-33.0); MCHC 31.3 % (32.0-36.0); MCV 93.8 fL (80-95); MPV 12.2 fL (8.0-11.0); Monocytes % 6.8; Neutrophils % 72.8; Nucleated RBC 0 %; Platelet Count 284 10^3/uL (130-400); RBC 5.17 10^6/uL (3.93-5.22); RDW 13.7 % (11.7-14.6); RDW-SD 47.8 fL; WBC 12.26 10^3/uL (4.4-10.8)
[2020-07-09 10:16] LABS: Absolute Basophil Count 0.02 10^3/uL (0.0-0.2)
[2020-07-09] MEDS: methylPREDNISolone SUCC 125 MG VIAL IVP (10:19)
--- NOTE | 2020-07-09 10:25 | DI.RAD_ITS ---
EXAM: XR PORTABLE CHEST AP CLINICAL HISTORY: SOB, hx of COPD TECHNIQUE: 2D digital imaging was performed. COMPARISON: CR XR PORTABLE CHEST AP from 11/29/[address] CHEST WO from 06/26/2020 FINDINGS: Leads overlie the chest. The lung bases are suboptimally penetrated. Lungs are grossly clear. The heart size is normal. IMPRESSION: No acute pulmonary findings. DATA REPOSITORY: RADIATION DOSE DELIVERED:
[2020-07-09 10:33] LABS: ALT 15 U/L (14-59); AST 15 U/L (15-37); Albumin 3.9 g/dL (3.4-5.0); Alkaline Phosphatase 69 U/L (46-116); Anion Gap 6.8 mmol/L (3-11); BUN 17 mg/dL (7-18); Bilirubin, Total 0.9 mg/dL (0.2-1.0); CO2 34.2 mmol/L (21.0-32.0); CREATININE 0.67 mg/dL (0.55-1.02); Calcium 9.4 mg/dL (8.5-10.1); Chloride 101 mmol/L (98-107); Glucose 119 mg/dL (74-106); Magnesium 2.2 mg/dL (1.8-2.4); Potassium 3.3 mmol/L (3.5-5.1); Sodium 142 mmol/L (136-145); Total Protein 7.4 g/dL (6.4-8.2)
[2020-07-09 10:36] LABS: Troponin I < 0.05 ng/mL (<0.06)
[2020-07-09] MEDS: Albuterol/Ipratropium 3 ML UPD VIAL UPD (11:13)
[2020-07-09] MEDS: Potassium Chloride Liquid 20 MEQ PKT 40 MEQ PO (11:16)
== END 2020-07-09 11:50 | disposition home or self-care (01) ==
PROVIDERS: Emergency Provider Registered Nurse Emergency; PCP Nurse Practitioner Family
DX: J44.1 Chronic obstructive pulmonary disease with (acute) exacerbation (principal); F17.210 Nicotine dependence, cigarettes, uncomplicated; G35 Multiple sclerosis
CPT/HCPCS: 36415; 80053; 93005; 94640; 96374; 99285; 71045; 83735; 84484; 85025; 93010; 99284; J2930; J7620

== ENCOUNTER 2020-08-07 11:46 | Outpatient (REF) | payer MEDICAID, SELFPAY ==
[2020-08-07 18:58] LABS: Abs Immature Grans 0.03 10^3/uL (0.0-0.06); Absolute Basophil Count 0.04 10^3/uL (0.0-0.2); Absolute Eosinophil Count 0.07 10^3/uL (0.0-0.7); Absolute Lymphocyte Count 2.44 10^3/uL (1.2-3.4); Absolute Monocyte Count 0.67 10^3/uL (0.1-0.8); Basophils % 0.4; Eosinophils % 0.7; HCT 44.8 % (36.0-46.0); HGB 13.4 g/dL (11.2-15.7); Immature Grans % 0.3; Lymphocytes % 24.3; MCH 29.4 pg (27.0-33.0); MCHC 29.9 % (32.0-36.0); MCV 98.2 fL (80-95); MPV 12.3 fL (8.0-11.0); Monocytes % 6.7; Neutrophils % 67.6; Nucleated RBC 0 %; Platelet Count 277 10^3/uL (130-400); RBC 4.56 10^6/uL (3.93-5.22); RDW 14.2 % (11.7-14.6); RDW-SD 51.6 fL; WBC 10.05 10^3/uL (4.4-10.8)
[2020-08-07 19:22] LABS: ALT 19 U/L (14-59); AST 19 U/L (15-37); Albumin 3.4 g/dL (3.4-5.0); Alkaline Phosphatase 87 U/L (46-116); Anion Gap 2.6 mmol/L (3-11); BUN 12 mg/dL (7-18); Bilirubin, Total 0.3 mg/dL (0.2-1.0); CO2 39.4 mmol/L (21.0-32.0); CREATININE 0.69 mg/dL (0.55-1.02); Chloride 99 mmol/L (98-107); Glucose 144 mg/dL (74-106); Lipase 59 U/L (73-393); Potassium 3.6 mmol/L (3.5-5.1); Sodium 141 mmol/L (136-145); Total Protein 6.5 g/dL (6.4-8.2)
== END 2020-08-07 12:06 ==
LOC: NCHCN 11:46
PROVIDERS: PCP Nurse Practitioner Family; Visit Provider Nurse Practitioner Family
DX: R10.9 Unspecified abdominal pain (principal); R63.4 Abnormal weight loss; G89.29 Other chronic pain; M51.16 Intervertebral disc disorders with radiculopathy, lumbar region
CPT/HCPCS: 80053; 83690; 85025; 87086

== ENCOUNTER 2020-08-14 00:40 | Outpatient (CLI) | payer MEDICAID, SELFPAY ==
--- NOTE | 2020-08-14 | DI.CT_ITS ---
EXAM: CT CHEST WO CLINICAL HISTORY: COPD,J44.9,F/U TAVIA INFILTRATE. TECHNIQUE: Imaging protocol: Axial computed tomography images were obtained and coronal and sagittal reformatted images were created and reviewed. COMPARISON: CT CT CHEST WO from 06/26/2020 FINDINGS: Tracheobronchial tree: Patent where visualized. Mediastinum and Deborah: Stable mildly prominent mediastinal lymph nodes are seen. No significant axill rand adenopathy is present. Pulmonary parenchyma: Moderate centrilobular emphysematous changes are present. There are again seen several noncalcified pulmonary nodules. The largest is in the left lower lobe. It measure 0.5 cm. The right lower lobe pulmonary nodule is stable. The lobulated nodule in the left upper lobe appear s stable. There is a slight increase in the peripheral left upper lobe reticular nodular infiltrate. A ground-glass opacities again seen in the anterior medial aspect of the right upper lobe. No new pulmonary nodules are seen. No architectural distortion. Pleura: No effusion or pneumothorax. Heart: The heart is not dilated. No coronary artery calcifications are seen. Small pericardial effusi on or thickening. Aorta: Thoracic aorta non-dilated. Mild atherosclerosis. Upper abdomen: Unremarkable. Lymph nodes: Please see above. Bones:Degenerative changes in the thoracic spine. There is ankylosis seen in the lower thoracic spin e. Soft tissues: Unremarkable. IMPRESSION: 1. Stable pulmonary nodules. 2. Slight increase in the reticular nodular infiltrate in the lateral aspect of the left upper lobe. 3. Centrilobular emphysema. 4. Stable mildly prominent mediastinal lymph nodes. RADIATION DOSE DELIVERED: 370.53mGy.cm Total DLP 370.53mGy.cm Total DLP DATA REPOSITORY: All CT scans at this facility are submitted to the National Radiology Data Registry (NRDR) Dose Index Registry (DIR) with the [employer] ([employer]). RADIATION OPTIMIZATION: All CT scans at this facility use at least one of these dose optimization te chniques: automated exposure control; mA and/or kV adjustment per patient size (includes targeted exa ms where dose is matched to clinical indication); or iterative reconstruction.
== END 2020-08-14 01:00 ==
PROVIDERS: PCP Nurse Practitioner Family; Visit Provider Internal Medicine
DX: R91.8 Other nonspecific abnormal finding of lung field (principal); J43.2 Centrilobular emphysema
CPT/HCPCS: 71250

== ENCOUNTER 2020-08-14 17:03 | Outpatient (CLI) | payer MEDICAID, SELFPAY ==
--- NOTE | 2020-08-14 | DI.CT_ITS ---
EXAM: CT ABDOMEN PELVIS W CLINICAL HISTORY: ABD PAIN,R10.9,LLQ AND RUQ PAIN TECHNIQUE: Imaging Protocol: Axial computed tomography images with coronal and sagittal reformatted images were created and reviewed CONTRAST MATERIAL: Intravenous: Omnipaque 350 Contrast volume:100 mL Oral: Yes COMPARISON: CT CT ABDOMEN PELVIS W from 04/25/2020 FINDINGS: ABDOMEN: Lung Bases: Normal where visualized. Liver: Normal density. No measurable mass. Portal, Superior Mesenteric, and Splenic Veins: Unremarkable. Gallbladder and Biliary Tract: No radiodense calculus or dilation. Pancreas: Normal density, no abnormal calcifications or inflammatory process. Spleen: Normal. Adrenals: No masses seen. Kidneys: Normal size, contour and axis. Nonobstructing left nephrolithiasis. No masses seen. Abdominal Aorta: Abdominal portion non-dilated. Atherosclerosis. Bowel: No obstruction or bowel wall thickening. Appendix is unremarkable. Peritoneal Cavity: No ascites, collection or mesenteric inflammatory response. Lymph Nodes: Within normal limits. Bones: Degenerative changes in the spine. Soft Tissues: Unremarkable. PELVIS: Bladder: Symmetric distention, no gross wall thickening. Reproductive Organs: Unremarkable as visualized. Lymph Nodes: Within normal limits. Bones: Degenerative changes in the spine. IMPRESSION: 1. Left nephrolithiasis. No hydronephrosis. 2. No acute abdominal or pelvic process. RADIATION DOSE DELIVERED: 1,080.83mGy.cm Total DLP DATA REPOSITORY: All CT scans at this facility are submitted to the National Radiology Data Registry (NRDR) Dose Index Registry (DIR) with the [employer] (ACR). RADIATION OPTIMIZATION: All CT scans at this facility use at least one of these dose optimization te chniques: automated exposure control; mA and/or kV adjustment per patient size (includes targeted exa ms where dose is matched to clinical indication); or iterative reconstruction.
[2020-08-14] MEDS: Breeza Beverage 473 ML BTL PO ×2 (12:10→12:11)
[2020-08-14] MEDS: Omnipaque 350 MG/ML 50 ML BTL PO (12:11)
[2020-08-14] MEDS: Omnipaque 350 MG/ML 100 ML BTL IJ (13:53)
[2020-08-14] MEDS: Normal Saline - Diluent 50 ML VIAL IV (13:54)
[2020-08-14] MEDS: Normal Saline Flush 10 ML SYR IVP (13:54)
== END 2020-08-14 17:23 ==
PROVIDERS: PCP Nurse Practitioner Family; Visit Provider Nurse Practitioner Family
DX: R10.32 Left lower quadrant pain (principal); R10.11 Right upper quadrant pain; N20.0 Calculus of kidney
CPT/HCPCS: 74177; J3490; Q9967

== ENCOUNTER 2020-09-11 10:55 | Outpatient (REF) | payer MEDICAID, SELFPAY ==
[2020-09-11 11:44] LABS: Bilirubin Negative (Negative); Blood Negative (Negative); Clarity Clear (Clear); Glucose Negative (Negative); Ketones Negative (Negative); Leukocyte Esterase Trace (Negative); Nitrite Negative (Negative); Urobilinogen 0.2 EU/dL (Up TO 0.2)
[2020-09-11 11:47] LABS: Abs Immature Grans 0.03 10^3/uL (0.0-0.06); Absolute Basophil Count 0.04 10^3/uL (0.0-0.2); Absolute Eosinophil Count 0.05 10^3/uL (0.0-0.7); Absolute Lymphocyte Count 1.97 10^3/uL (1.2-3.4); Absolute Monocyte Count 0.62 10^3/uL (0.1-0.8); Absolute Neutrophil Count 7.55 10^3/uL (1.2-6.7); Basophils % 0.4; Eosinophils % 0.5; HCT 45.1 % (36.0-46.0); HGB 14.1 g/dL (11.2-15.7); Immature Grans % 0.3; Lymphocytes % 19.2; MCH 30.3 pg (27.0-33.0); MCHC 31.3 % (32.0-36.0); MCV 96.8 fL (80-95); MPV 13.7 fL (8.0-11.0); Neutrophils % 73.6; Nucleated RBC 0 %; RBC 4.66 10^6/uL (3.93-5.22); RDW 13.8 % (11.7-14.6); RDW-SD 49.4 fL; WBC 10.26 10^3/uL (4.4-10.8)
[2020-09-11 12:00] LABS: Bacteria Moderate HPF (Negative); C & S Indicated? C&S Done As Ordered; Casts Negative LPF (Negative); Crystals Negative HPF (Negative); Epithelial Cells Moderate HPF (Negative); Mucus Negative (Negative); RBC Negative HPF (0-2)
[2020-09-11 12:01] LABS: C-Reactive Protein 0.59 mg/dL (0.0-0.3); TSH 1.13 uIU/mL (0.36-3.74)
[2020-09-11 12:17] LABS: Platelet Count 250 10^3/uL (130-400)
[2020-09-11 12:18] LABS: Diff Comment PLT Morph Reviewed; RBC Morphology Normal
[2020-09-12 10:10] LABS: HIV-1/2 Ag & Ab Screen Negative (Negative)
[2020-09-12 12:25] LABS: Hepatitis A Antibody IgM Negative (Negative); Hepatitis B Core Antibody Negative (Negative); Hepatitis B surface Ag Negative (Negative); Hepatitis C Ab w Rflx HCV PCR Negative (Negative)
== END 2020-09-11 11:15 ==
LOC: NCHCN 10:55
PROVIDERS: PCP Nurse Practitioner Family; Visit Provider Nurse Practitioner Family
DX: J44.1 Chronic obstructive pulmonary disease with (acute) exacerbation (principal); G35 Multiple sclerosis; F43.10 Post-traumatic stress disorder, unspecified; F32.9 Major depressive disorder, single episode, unspecified; M51.16 Intervertebral disc disorders with radiculopathy, lumbar region
CPT/HCPCS: 86704; 86709; 86803; 87340; 87389; 81003; 81015; 84443; 85025; 86140; 87086

== ENCOUNTER 2020-11-10 15:23 | Outpatient (REF) | payer MEDICAID, SELFPAY ==
[2020-11-10 16:01] LABS: ALT 25 U/L (14-59); AST 21 U/L (15-37); Ferritin 72 ng/mL (8-252); HDL Cholesterol 62 mg/dL (40-60); LDL CHOLESTEROL 94 mg/dL (<100)
[2020-11-10 16:17] LABS: Creatine Kinase 74 U/L (26-192)
[2020-11-13 06:40] LABS: Codeine Negative ng/mL (Cutoff: 25); Dihydrocodeine Negative ng/mL (Cutoff: 25); Hydrocodone Negative ng/mL (Cutoff: 25); Hydromorphone Negative ng/mL (Cutoff: 25); Morphine Negative ng/mL (Cutoff: 25); Naloxone Negative ng/mL (Cutoff: 25); Norhydrocodone Negative ng/mL (Cutoff: 25); Noroxycodone Negative ng/mL (Cutoff: 25); Noroxymorphone Negative ng/mL (Cutoff: 25); Opiates Interpretation Negative.
== END 2020-11-10 15:43 ==
LOC: NCHCN 15:23
PROVIDERS: PCP Nurse Practitioner Family; Visit Provider Nurse Practitioner Family
DX: E78.5 Hyperlipidemia, unspecified (principal); R07.89 Other chest pain; G89.29 Other chronic pain; Z79.891 Long term (current) use of opiate analgesic; J44.9 Chronic obstructive pulmonary disease, unspecified; M51.16 Intervertebral disc disorders with radiculopathy, lumbar region; Z99.81 Dependence on supplemental oxygen; G43.909 Migraine, unspecified, not intractable, without status migrainosus; Z51.81 Encounter for therapeutic drug level monitoring; G47.00 Insomnia, unspecified
CPT/HCPCS: 80361; 80362; 82550; 83721; 82728; 83718; 84450; 84460

== ENCOUNTER 2020-11-11 03:22 | Outpatient (RCR) | payer MEDICAID, SELFPAY ==
--- NOTE | 2020-11-11 11:15 | HOLTER_ITS ---
APPROVED REPORT Exam Type: HOLTER MONITOR APPLICATION Reason for Test: ventricular ectopy Patient Location: O Conclusion This is a 48-hour Holter monitor ordered for indication of ventricular ectopy. The patient was in normal sinus rhythm for the majority of the recording with an average heart rate o f 109 bpm. There were 7 episodes of supraventricular tachycardia with the longest lasting 5 beats. There were r are PACs. There were 0 episodes of ventricular tachycardia and occasional (3.8%) PVCs. There were no episodes of atrial fibrillation, no pauses greater than 3 seconds and no evidence of hi gh degree heart block. 1 patient triggered event was associated with sinus tachycardia.
== END 2020-12-07 23:59 | disposition home or self-care (01) ==
LOC: RT 03:22
PROVIDERS: PCP Nurse Practitioner Family; Visit Provider Nurse Practitioner Family
DX: I49.3 Ventricular premature depolarization (principal)
CPT/HCPCS: 93225; 93226

== ENCOUNTER 2020-11-20 02:24 | Outpatient (CLI) | payer MEDICAID, SELFPAY ==
[2020-11-22 09:04] LABS: COVID-19 RT-PCR UVMMC Result Negative (Negative)
== END 2020-11-20 02:25 | disposition home or self-care (01) ==
PROVIDERS: PCP Nurse Practitioner Family; Visit Provider Family Medicine
DX: Z20.822 Contact with and (suspected) exposure to COVID-19 (principal); Z01.818 Encounter for other preprocedural examination
CPT/HCPCS: U0003

== ENCOUNTER 2020-11-27 00:40 | Outpatient (CLI) | payer MEDICAID, SELFPAY ==
--- NOTE | 2020-11-27 11:00 | DI.NM_ITS ---
APPROVED REPORT Exam: Pharmacologic Patient Location: Out-Patient Room/Bed: Stress Nurse: Dulce Edwards RN Ordering Provider:PASQUALE HURTADO, Contact Number: [phone] BMI: 26.62 Baseline Rhythm: Sinus Tachycardia Comment: frequent PVCs, bigeminy Indications: Left chest pain, radiation to arm, sob, smoker, HLP, ABNL EKG, severe COPD Medical History Medical History: dementia, hyperlipidemia, multiple sclerosis, home oxygen therapy, COPD stage 3 levon re, frequent falls, prediabetes, gerd, tachycardia, cough syncope, hypotension, depression, smoker (c urrent), asthma, obesity Cardiac Medications: omeprazole, oxygen, trazodone, atorvastatin Allergies: bee stings, varenicline tartrate Cardiac Risk Factors: hyperlipidemia, home oxygen therapy, COPD stage 3 severe, prediabetes, gerd, ta chycardia, hypotension, smoker (current), asthma, obesity Previous Cardiac Procedures: None Pretest Chest Pain Characteristics: None Exercise History: Sedentary Physical Disabilities: Legs Lung Sounds: Clear to auscultation Heart Sounds: Regular Stress Test Details Test: Pharmacologic stress testing performed using 0.4 mg of regadenoson per 5 mL given IV over 10 s econds. Nuclear Acquisition: Rest Tc-99m/Stress Tc-99m 1 day Rest Isotope: Tc-99m Sestamibi. Dose: 12.0 Date: 11/27/2020 Injection Time: 1050 Stress Isotope: Tc-99m Sestamibi. Dose: 36.0 Date: 11/27/2020 Injection Time: 1320 HR Resting HR Supine: 109 bpm Max Heart Rate (APMHR): 165 bpm Target HR (85% APMHR): 140 bpm Max HR Achieved: 136 bpm % of APMHR: 82 Recovery HR: 119 bpm BP Resting BP Supine: 190/100 mmHg Max BP: 196/108 mmHg Recovery BP: 188/106 mmHg ECG Resting ECG: Sinus Tachycardia Ectopy: Frequent PVCs, bigeminy Stress ECG: Sinus Tachycardia ST Change: No significant ST segment changes noted Arrhythmia: PVCs Recovery ECG: Sinus Tachycardia Recovery ST Change: No significant ST segment changes noted Recovery Arrhythmia: Frequent PVCs, run of bigeminy, couplet, occassional PACs Clinical Stress Symptoms: Nausea, dyspnea Rate Pressure Product: [id number] MPI Conclusion The ejection fraction was 57% with stress. There were no wall motion abnormalities. There was no evidence of ischemia on the imaging portion of the exam. This represents a normal SPECT stress test.
[2020-11-27] MEDS: Regadenoson 0.4 MG/5 ML SYR IVP (13:09)
== END 2020-11-27 00:41 ==
PROVIDERS: PCP Nurse Practitioner Family; Visit Provider Nurse Practitioner Family
DX: R07.9 Chest pain, unspecified (principal); R06.02 Shortness of breath; E78.5 Hyperlipidemia, unspecified; R94.31 Abnormal electrocardiogram [ECG] [EKG]
CPT/HCPCS: 78452; 93017; J2785

== ENCOUNTER 2021-01-22 12:41 | Emergency (ER) | payer MEDICAID, SELFPAY ==
[2021-01-22] VITALS (25 sets, daily range): BP systolic 117–169; BP diastolic 82–99; PULSE 105–137; RESP 17–33; TEMP 36.3–36.6; O2SAT 96–100
--- NOTE | 2021-01-22 12:45 | RT.EKG_ITS ---
APPROVED REPORT Exam: Resting ECG Patient Location: E HR:124 bpm ECG Measurements Heart Rate 124 AXIS NM 148 P 86 QRSd 90 QRS 86 QT 328 T 70 QTc 471 Conclusion Sinus tachycardia. LAE, consider biatrial enlargement
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
[2021-01-22] MEDS: methylPREDNISolone SUCC 125 MG VIAL IVP (13:19)
[2021-01-22] MEDS: Normal Saline Flush 10 ML SYR IVP (13:19)
[2021-01-22 13:21] LABS: Abs Immature Grans 0.06 10^3/uL (0.0-0.06); Absolute Basophil Count 0.04 10^3/uL (0.0-0.2); Absolute Monocyte Count 1.11 10^3/uL (0.1-0.8); Absolute Neutrophil Count 8.99 10^3/uL (1.2-6.7); Basophils % 0.3; Eosinophils % 0.3; HCT 40.7 % (36.0-46.0); HGB 12.6 g/dL (11.2-15.7); Immature Grans % 0.5; Lymphocytes % 13.7; MCH 29.4 pg (27.0-33.0); MCV 95.1 fL (80-95); MPV 11.5 fL (8.0-11.0); Monocytes % 9.4; Neutrophils % 75.8; Nucleated RBC 0 %; Platelet Count 313 10^3/uL (130-400); RBC 4.28 10^6/uL (3.93-5.22); RDW 13.7 % (11.7-14.6); RDW-SD 48.8 fL; WBC 11.86 10^3/uL (4.4-10.8)
[2021-01-22] MEDS: Albuterol/Ipratropium 3 ML UPD VIAL UPD (13:21)
[2021-01-22 13:26] LABS: Absolute Eosinophil Count 0.04 10^3/uL (0.0-0.7); Absolute Lymphocyte Count 1.62 10^3/uL (1.2-3.4)
[2021-01-22 13:38] LABS: ALT 20 U/L (14-59); AST 30 U/L (15-37); Albumin 3.3 g/dL (3.4-5.0); Alkaline Phosphatase 392 U/L (46-116); Anion Gap 7.5 mmol/L (3-11); BUN 14 mg/dL (7-18); Bilirubin, Total 0.5 mg/dL (0.2-1.0); CO2 36.5 mmol/L (21.0-32.0); CREATININE 0.9 mg/dL (0.55-1.02); Calcium 9.4 mg/dL (8.5-10.1); Chloride 99 mmol/L (98-107); Glucose 136 mg/dL (74-106); Magnesium 2.2 mg/dL (1.8-2.4); Potassium 3.4 mmol/L (3.5-5.1); Sodium 143 mmol/L (136-145); Total Protein 7.8 g/dL (6.4-8.2); Troponin I < 0.05 ng/mL (<0.06)
--- NOTE | 2021-01-22 14:20 | DI.RAD_ITS ---
EXAM: XR PORTABLE CHEST AP CLINICAL HISTORY: cough. TECHNIQUE: 2D digital imaging was performed. COMPARISON: CR XR PORTABLE CHEST AP from 07/09/2020 FINDINGS: Heart size is normal. The mediastinum is not widened. Blunting left costophrenic angle is evident consistent with pleural effusion. No obvious pleural eff usion on the opposite-right side. Increased markings left suprahilar region.. IMPRESSION: Left upper lobe infiltrate. Left pleural effusion. These findings were not evident on 07/09/2020. DATA REPOSITORY: RADIATION DOSE DELIVERED: All CT scans at this facility use at least one of these dose optimization techniques: automated exposure control; mA and/or kV adjustment per patient size (includes targeted e xams where dose is matched to clinical indication); or iterative reconstruction.
[2021-01-22] MEDS: Cefdinir 300 MG CAP PO (15:10)
[2021-01-23 10:38] LABS: COVID-19 RT-PCR UVMMC Result Negative (Negative)
--- NOTE | 2021-01-23 13:11 | NUR.NOTE ---
Nursing Note: Pt contacted via cell phone number on file and notified of negative covid results.
== END 2021-01-22 15:26 | disposition home or self-care (01) ==
PROVIDERS: Emergency Provider Emergency Medicine; PCP Nurse Practitioner Family
DX: J18.9 Pneumonia, unspecified organism (principal); J90 Pleural effusion, not elsewhere classified
CPT/HCPCS: 80053; 93005; 94640; 96374; 99284; U0003; 71045; 83735; 84484; 85025; 93010; 99283; J2930; J7620

== ENCOUNTER 2021-01-22 14:21 | Outpatient (REF) | payer MEDICAID, SELFPAY ==
[2021-01-22 16:21] LABS: Vitamin B12 1162 pg/mL (193-986)
== END 2021-01-22 14:22 | disposition home or self-care (01) ==
LOC: NCHCN 14:21
PROVIDERS: PCP Nurse Practitioner Family; Visit Provider Nurse Practitioner Family
DX: F39 Unspecified mood [affective] disorder (principal); R82.998 Other abnormal findings in urine; Z79.899 Other long term (current) drug therapy
CPT/HCPCS: 82607; 87086

== ENCOUNTER 2021-02-17 21:59 | Outpatient (CLI) | payer MEDICAID, SELFPAY ==
--- NOTE | 2021-02-17 11:07 | DI.RAD_ITS ---
Exam(s) XR ANKLE LT COMPLETE EXAM: XR ANKLE LT COMPLETE CLINICAL HISTORY: LT ANKLE PAIN, M25.572 TECHNIQUE: COMPARISON: No exams were available for comparison FINDINGS: Three views were obtained. The ankle mortise is well maintained. No significant bony or soft tissue abnormality seen. IMPRESSION: RADIATION DOSE DELIVERED: Total DLP
== END 2021-02-17 22:19 ==
PROVIDERS: PCP Nurse Practitioner Family; Visit Provider Physician Assistant Medical
DX: M25.572 Pain in left ankle and joints of left foot (principal)
CPT/HCPCS: 73610

== ENCOUNTER 2021-02-23 07:02 | Emergency (ER) | payer MEDICAID, SELFPAY ==
[2021-02-23] VITALS (47 sets, daily range): BP systolic 87–155; BP diastolic 55–115; PULSE 103–132; RESP 4–32; TEMP 36.6–36.9; O2SAT 88–100
--- NOTE | 2021-02-23 07:00 | DI.RAD_ITS ---
Exam(s) XR KNEE RT 3V AP,LAT,DIMPLE EXAM: XR KNEE RT 3V AP,LAT,DIMPLE CLINICAL HISTORY: pain s/p fall. TECHNIQUE: 2D digital imaging was performed. COMPARISON: No exams were available for comparison FINDINGS: No evidence of fracture or prominent joint effusion. Benign-appearing sclerotic bone density noted i n the proximal diaphysis-metaphysis junction of the tibia, laterally. No joint space narrowing. No marginal osteophytes. IMPRESSION: DATA REPOSITORY: RADIATION DOSE DELIVERED:
--- NOTE | 2021-02-23 07:00 | DI.RAD_ITS ---
Exam(s) XR KNEE LT 3V AP,LAT,DIMPLE EXAM: XR KNEE LT 3V AP,LAT,DIMPLE CLINICAL HISTORY: pain s/p fall. TECHNIQUE: 2D digital imaging was performed. COMPARISON: CR XR KNEE RT 3V AP,LAT,DIMPLE from 02/23/2021 FINDINGS: There is nondisplaced oblique fracture line in the proximal fibula noted. No fractures in the visual ized distal femur and femoral condyles nor in the visualized proximal tibia. No osteochondral defect s of the femoral condyles evident. IMPRESSION: Nondisplaced proximal fibular fracture DATA REPOSITORY: RADIATION DOSE DELIVERED:
--- NOTE | 2021-02-23 07:00 | DI.CT_ITS ---
Exam(s) CT HEAD CERVICAL SPINE WO EXAM: CT HEAD CERVICAL SPINE WO CLINICAL HISTORY: falls and weakness, pain. TECHNIQUE: Imaging Protocol: Axial computed tomography images with coronal and sagittal reformatted images were created and reviewed COMPARISON: CT HEAD WITHOUT CONTRAST from 12/26/2016 FINDINGS: BRAIN: There are no skull fractures nor fluid in the visualized paranasal sinuses. There is no evidence of intracranial hemorrhage, mass effect, or shift of midline structures. There are no extra-axial fluid collections. The ventricles are not enlarged or shifted and there is no blo od within the ventricular system nor within the basal cisterns. CERVICAL SPINE: Study blurred by motion artifact. There is no evidence of obvious fracture nor listhesis. No significant prevertebral soft tissue swel ling. Bones of the cervical spine reveal evidence of what appears to be metastatic disease, mostly blastic . This also involves the bilateral rib cages. Large left pleural effusion is noted as is infiltrate left lung. IMPRESSION: No acute intracranial findings on this noninfused CT scan of the brain. No evidence of cervical spine fracture, malalignment, nor acute compromise of the cervical spinal can al. 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 Large left pleural effusion and left lung infiltrate incidentally noted in the field of view. Requir es workup. Findings discussed by myself ER physician 02/23/2021 9:10 a.m. RADIATION DOSE DELIVERED: 1,344.8mGy.cm Total DLP DATA REPOSITORY: All CT scans at this facility are submitted to the National Radiology Data Registry (NRDR) Dose Index Registry (DIR) with the [employer] (A[employer]). RADIATION OPTIMIZATION: All CT scans at this facility use at least one of these dose optimization te chniques: automated exposure control; mA and/or kV adjustment per patient size (includes targeted exa ms where dose is matched to clinical indication); or iterative reconstruction.
--- NOTE | 2021-02-23 07:00 | RT.EKG_ITS ---
APPROVED REPORT Exam: Resting ECG Reason for Exam: falls, ?syncope Patient Location: E HR:124 bpm ECG Measurements Heart Rate 124 AXIS HI 132 P 56 QRSd 81 QRS 65 QT 312 T 53 QTc 448 Conclusion Sinus tachycardia...rate> 99 Probable left atrial enlargement...P >50mS, <-0.10mV V1 sinus tachycardia at 124, normal axis, no STEMI, nondiagnostic EKG
--- NOTE | 2021-02-23 07:00 | DI.RAD_ITS ---
Exam(s) XR ANKLE LT COMPLETE EXAM: XR ANKLE LT COMPLETE CLINICAL HISTORY: pain s/p fall. TECHNIQUE: 2D digital imaging was performed. COMPARISON: CR XR ANKLE LT COMPLETE from 02/17/2021 FINDINGS: Mild soft tissue swelling. No fracture or widening of the mortise. No osteochondral defects in the talar dome. No osseous tarsal coalition. Some calcification is noted posteriorly to insertion site of the Achilles tendon on the posterior calcaneus. There is a tiny inferior calcaneal spur. IMPRESSION: DATA REPOSITORY: RADIATION DOSE DELIVERED:
--- NOTE | 2021-02-23 07:00 | DI.RAD_ITS ---
Exam(s) XR CHEST 2V PA LATERAL EXAM: XR CHEST 2V PA LATERAL CLINICAL HISTORY: weakness, cough. TECHNIQUE: 2D digital imaging was performed. COMPARISON: CR XR PORTABLE CHEST AP from 01/22/2021 FINDINGS: There has been further deterioration. There is extensive bilateral interstitial partially confluent pulmonary infiltrates and there is a mo derate-large left pleural effusion evident. Size of the pleural effusion is significantly increased compared to 01/22/2021. Heart size is normal mediastinum is not widened IMPRESSION: Significant increase in bilateral interstitial and partially confluent pulmonary infiltrates. Increased size left pleural effusion now moderate-large size. DATA REPOSITORY: RADIATION DOSE DELIVERED:
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
[2021-02-23] MEDS: Albuterol/Ipratropium 3 ML UPD VIAL UPD ×3 (07:39→10:34)
[2021-02-23] MEDS: methylPREDNISolone SUCC 125 MG VIAL IVP (07:42)
[2021-02-23] MEDS: Acetaminophen 500 MG TAB 1000 MG PO (08:01)
[2021-02-23] MEDS: Normal Saline 500 ML IV ×2 (08:14→09:50)
[2021-02-23 08:15] LABS: Abs Immature Grans 0.06 10^3/uL (0.0-0.06); Absolute Basophil Count 0.03 10^3/uL (0.0-0.2); Absolute Eosinophil Count 0.05 10^3/uL (0.0-0.7); Absolute Lymphocyte Count 1.12 10^3/uL (1.2-3.4); Absolute Monocyte Count 0.77 10^3/uL (0.1-0.8); Absolute Neutrophil Count 6.63 10^3/uL (1.2-6.7); Basophils % 0.3; Eosinophils % 0.6; HGB 9.9 g/dL (11.2-15.7); Immature Grans % 0.7; Lymphocytes % 12.9; MCH 28.9 pg (27.0-33.0); MCHC 29.1 % (32.0-36.0); MCV 99.4 fL (80-95); MPV 10.8 fL (8.0-11.0); Monocytes % 8.9; Neutrophils % 76.6; Nucleated RBC 0 %; Platelet Count 294 10^3/uL (130-400); RBC 3.42 10^6/uL (3.93-5.22); RDW 15.1 % (11.7-14.6); RDW-SD 54.9 fL; WBC 8.66 10^3/uL (4.4-10.8)
[2021-02-23 08:15] LABS: Bilirubin Negative (Negative); Blood Negative (Negative); Clarity Clear (Clear); Glucose Negative (Negative); Ketones Negative (Negative); Leukocyte Esterase Negative (Negative); Nitrite Negative (Negative); Specific Gravity 1.015 (1.005-1.025); Urobilinogen 0.2 EU/dL (Up TO 0.2); pH 5.5 (5-8)
[2021-02-23 08:27] LABS: INR 1.1 (0.9-1.1); Prothrombin Time 10.6 sec (9.3-11.0)
[2021-02-23 08:34] LABS: ALT 23 U/L (14-59); AST 36 U/L (15-37); Albumin 2.7 g/dL (3.4-5.0); Alkaline Phosphatase 389 U/L (46-116); Anion Gap 4.8 mmol/L (3-11); BUN 33 mg/dL (7-18); Bilirubin, Total 0.5 mg/dL (0.2-1.0); CO2 34.2 mmol/L (21.0-32.0); Calcium 8.5 mg/dL (8.5-10.1); Chloride 109 mmol/L (98-107); Creatine Kinase 90 U/L (26-192); Estimated GFR 10.99 (mL/min/1.73m2); Glucose 137 mg/dL (74-106); Potassium 4.3 mmol/L (3.5-5.1); Sodium 148 mmol/L (136-145); Total Protein 6.8 g/dL (6.4-8.2); Troponin I < 0.05 ng/mL (<0.06)
[2021-02-23 08:35] LABS: CREATININE 4.2 mg/dL (0.55-1.02)
[2021-02-23 09:22] LABS: D-Dimer 4043 ng/mlFEU (<500)
[2021-02-23 09:28] LABS: NT-proBNP 570 pg/mL (<300)
--- NOTE | 2021-02-23 09:51 | DI.US_ITS ---
Exam(s) US EXTREMITY VENOUS BI EXAM: US EXTREMITY VENOUS BILATERAL CLINICAL HISTORY: d/dimer elevated, cannot obtain CT for r/o PE TECHNIQUE: Grayscale, color, and doppler imaging of the deep venous system of both lower extremities was performed. COMPARISON: None FINDINGS: There is no evidence of intraluminal thrombus and there is normal compression and augmentation demons trated within the common femoral veins, femoral veins, and popliteal veins of both lower extremities. In the calves the interrogated veins also exhibit normal compression/ augmentation properties. The greater saphenous veins also appear patent as do the saphenofemoral junctions bilaterally.. IMPRESSION: 1. No ultrasound evidence of DVT in either lower extremity. DATA REPOSITORY:
[2021-02-23 10:03] LABS: BE 6 mmol/L (-2-3); HCO3 33 mmol/L (22-26); pH 7.26 (7.35-7.45); pO2 55 mmHg (80-105); sO2 87 % (95-98); tCO2 32 mmol/L (23-27)
[2021-02-23 10:07] LABS: FIO2L 3 L; Site Right Radial; pCO2 74 mmHg (35-45)
[2021-02-23] MEDS: cefTRIAXone 1 GM/50 ML BAG IVPB (10:40)
[2021-02-23 10:43] LABS: Troponin I < 0.05 ng/mL (<0.06)
[2021-02-23 11:05] LABS: BE 5 mmol/L (-2-3); HCO3 33 mmol/L (22-26); pH 7.23 (7.35-7.45); pO2 63 mmHg (80-105); sO2 91 % (95-98); tCO2 32 mmol/L (23-27)
[2021-02-23 11:07] LABS: FIO2 35 %; FIO2L BiPAP 12/5 L; Site Right Radial; pCO2 78 mmHg (35-45)
[2021-02-23 16:43] LABS: COVID-19 PCR Negative (Negative)
== END 2021-02-23 11:46 | disposition home or self-care (01) ==
PROVIDERS: Emergency Medicine; Emergency Provider Student in an Organized Health Care Education/Training Program; PCP Nurse Practitioner Family
DX: M25.572 Pain in left ankle and joints of left foot (principal); M25.562 Pain in left knee; M25.561 Pain in right knee; J44.9 Chronic obstructive pulmonary disease, unspecified; R29.6 Repeated falls; R06.02 Shortness of breath
CPT/HCPCS: 36415; 36416; 51701; 73562; 80053; 82550; 82805; 82962; 87635; 93005; 94640; 96361; 96365; 96375; 99285; 36600; 70450; 71046; 72125; 73610; 81003; 83735; 83880; 84484; 85025; 85379; 85610; 85730; 93010; 93970; 99284; J0696; J2930; J7620